=== PATIENT | female | born 1985 | race Caucasian/White ===

== ENCOUNTER 2018-02-12 08:43 | Inpatient (IN) ==
--- NOTE | 2018-02-12 09:24 | Emergency Department Note ---
Disposition Clinical Impression: NSTEMI (non-ST elevated myocardial infarction) Chest pain Qualifiers: Chest pain type: chest pain due to myocardial ischemia Ischemic chest pain ty pe: unspecified angina pectoris type Qualified Code(s): I25.9 - Chronic ischemic heart disease, unspecified Disposition: Admitted As Inpatient Condition: Fair Time of Disposition: 10:28 Chest Pain HPI - General Chief Complaint: ED Chest Pain Stated Complaint: CP Time Seen by Provider: 02/12/18 08:59 Source: patient, family Limitations: no limitations Vital Signs Reviewed: Yes Nursing Notes Reviewed: Yes - History of Present Illness HPI Narrative: 32-year-old female presents from home for evaluation of left-sided chest pain. Onset 12 hours prior to arrival. Located on the left upper parasternal. Described as sharp, stabbing. She describes a pulling sensation that comes down her neck, down her left axilla as well as from her spine as well as a heavy sensation as if somebody is sitting on her chest with associated shortness of breath. Also associated with nausea. This initially started when she twisted her left but is not worsened with any particular movements. Not improved with ibuprofen. PMH: History of anxiety. Patient notes that her symptoms do not feel at all like her previous panic attacks. Patient is a heavy coffee and mountain dew drinker. Minimal to no water intake. No history of hypertension, hyperlipidemia, CAD, ACS, diabetes. Habits: Currently everyday smoker Family history: Father had an GA at the age of 31 ROS: Positive: As above Negative: Fever, chills, vomiting, palpitations, numbness or tingling, confusion, neck pain, trauma, abdominal pain Severity scale (1-10): 7 - Related Data Home Medications Medication Instructions Recorded Confirmed Citalopram [CeleXA] 20 mg PO DAILY 02/12/18 02/12/18 Etonogestrel/Ethinyl Estradiol 1 each VG QMONTH 02/12/18 02/12/18 [Nuvaring Vaginal Ring] Allergies Allergy/AdvReac Type Severity Reaction Status Date / Time acetaminophen [From Percocet] Allergy Gastrointestinal Verified 12/24/17 10:11 Upset Oxycodone [From Percocet] Allergy Gastrointestinal Verified 12/24/17 10:11 Upset All systems ED: reviewed and negative except as stated. Review of Systems: As Per HPI Chest Pain PMH - Past Medical History Medical history: Reports: non-contributory Psychiatric history: Reports: anxiety, depression - Social History Smoking Status: Current every day smoker Alcohol use: Reports: none Drug use: Reports: none Physical Exam Vital Signs Reviewed General: Patient is alert, oriented, and in no acute distress. Head: atraumatic, normocephalic Eye: normal appearance, PERRL, EOMI, no scleral icterus, no conjunctival injection ENT: mucous membranes moist, normal external ear exam Neck: normal inspection, trachea midline, full ROM Chest: normal inspection, symmetric chest rise. Tenderness to palpation of left rib to costal sternal margin. Respiratory: Good respiratory effort. Bilateral breath sounds are clear without wheezing, crackles, or rhonchi. Cardiovascular: Regular rate and rhythm. No clicks, rubs, gallops, or murmors. Normal heart sounds. Bilateral radial pulses 2/4 and equal. Abdomen: Bowel sounds present normoactive. Abdomen is soft, nondistended, and nontender. No guarding or rebound. Musculoskeletal: Spontaneously moving all extremities. Skin: warm, dry, intact. Neuro: GCS 15. Alert and oriented x4. Sensation light touch intact. Psych: Patient's affect is appropriate for situation. - General Limitations: no limitations General appearance: alert, in no apparent distress Course Course Narrative: Patient is hypertensive to systolic 170's. No prior hx of HTN. Patient's family history is concerning. Will perform chest pain workup. Though she is not tachycardic or tachypneic, she does report shortness of breath and is hypertensive. We will continue to monitor blood pressure and also draw d-dimer. Patient's blood pressure now systolic 150s. Chest x-ray is unremarkable per radiology and my own read. Troponin elevated to 4.6. Patient given aspirin, heparinized, trial of SL nitroglycerin. 10:[address] Heredia. Discussed with him the patient's clinical presentation, comorbidities, family history, diagnosis, and treatment. He agrees to see the patient on consult. No further recommendations given at this time. 10:20 Spoke with the patient and at bedside. Discussed the above as well as or concerning diagnosis. She agrees to admission for continued evaluation. We discussed in detail her current lifestyle the need for lifestyle modifications to maximize her health moving forward notably in light of today's diagnosis as well as her family history. She expresses understanding. She requests to see a production supervisor trainee in any other needed consultants while inpatient; she appears ready and willing to make changes to her health. 10:25 Dr. Contreras, the admitting hospitalist, who agrees to accept the patient for continued evaluation with cardiology consulting. 10:28 Discussed the patient with the cardiology BRIDGET. She is no questions this time. She reaffirms admission to hospitalist with cardiology consultation. EKG #1 EKG dated 02/12/18 at 08:52 interpreted as sinus rhythm with a rate of 72. DE 165, QRS 103, QTC 414. Normal axis. Nonspecific ST-T changes. S with present in lead 1, Q wave with T-wave inversion present in lead 3. Good R-wave progression. No previous EKG for comparison. EKG #2 EKG dated 02/04/2018 at 10:14 interpreted as sinus rhythm with rate of 87 DE 146, QRS 98, QTc 468. Nonspecific ST-T changes; unchanged from EKG #1 above. Chest X-Ray 02/12/18 09:16 IMPRESSION: No acute process. D/ / Darren Menon MD / Darren Menon MD Interpreting Provider: Darren Menon MD Vital Signs Temperature 98.2 F 02/12/18 08:46 Pulse Rate 72 02/12/18 08:46 Respiratory Rate 18 02/12/18 08:46 Blood Pressure 175/110 02/12/18 08:46 O2 Sat by Pulse Oximetry 98 02/12/18 08:46 Temperature 98.2 F 02/12/18 09:09 Pulse Rate 80 02/12/18 10:04 Respiratory Rate 18 02/12/18 10:04 Blood Pressure 153/114 02/12/18 10:04 O2 Sat by Pulse Oximetry 99 02/12/18 10:04 Oxygen Delivery Oxygen Delivery Room Air Chest Pain - Lab Data Result diagrams: 02/12/18 09:26 02/12/18 09:26 Lab Results 02/12/18 02/12/18 02/12/18 Range/Units 09:26 09:26 09:26 WBC 10.7 (4.3-11.1) K/mcL RBC 4.68 (3.82-4.97) M/mcL Hgb 12.9 (11.5-15.4) g/dL Hct 39.4 (35.3-44.9) % MCV 84.2 (83.0-100.0) fL MCH 27.6 L (28.0-33.3) pg MCHC 32.7 (31.6-35.5) g/dL RDW 12.6 (11.5-14.5) % Plt Count 228 (140-400) K/mcL MPV 10.5 (9.4-12.4) fL Immature Gran % 0.3 (0-4) % Seg Neutrophils % 67.2 % Lymphocytes % 24.4 % Monocytes % 5.0 % Eosinophils % 2.5 % Basophils % 0.6 % Neutrophils # 7.2 (1.6-8.9) K/mcL Lymphocytes # 2.6 (0.6-4.6) K/mcL Monocytes # 0.5 (0.0-1.3) K/mcL Eosinophils # 0.3 (0.0-0.6) K/mcL Basophils # 0.1 (0.0-0.2) K/mcL PT 10.9 (9.4-12.1) Seconds INR 1.0 APTT 33.7 (26.0-36.0) Seconds D-Dimer 409 (0-500) ng/mLFEU Heparin Anti-Xa, Unfract 0.00 L (0.30-0.70) IU/mL Sodium 138 (136-145) mEq/L Potassium 4.2 (3.5-5.1) mEq/L Chloride 109 H (98-107) mEq/L Carbon Dioxide 20 L (23-29) mEq/L BUN 14 (6-20) mg/dL Creatinine 0.77 (0.60-1.20) mg/dL Est GFR ( Amer) > 60 (> 60) Est GFR (Non-Af Amer) > 60 (> 60) BUN/Creatinine Ratio 18 (6-26) Glucose 99 (70-105) mg/dL Calculated Osmolality 287 (280-300) Calcium 8.5 L (8.6-10.3) mg/dL Troponin I 4.62 H* (< 0.04) ng/mL Heart Score - Score History: Moderately Suspicious EKG: Non Specific repolarisation Disturbance Age: Less than 45 Risk Factors: Equal/Greater than 3 risk factor or history of atherosclerotic disease Troponin: Less than normal limit HEART Score Total: 4
[2018-02-12] MEDS ORDERED: Ondansetron ODT 4 MG TAB.RAPDIS SL ONE (09:30)
[2018-02-12] MEDS ORDERED: Ibuprofen 800 MG TABLET PO ONE (09:30)
[2018-02-12 09:35] LABS: Basophils # 0.1 K/mcL (0.0-0.2); Basophils % 0.6 %; Eosinophils # 0.3 K/mcL (0.0-0.6); Eosinophils % 2.5 %; Hematocrit 39.4 % (35.3-44.9); Hemoglobin 12.9 g/dL (11.5-15.4); Immature Granulocytes % 0.3 % (0-4); Lymphocytes # 2.6 K/mcL (0.6-4.6); Lymphocytes % 24.4 %; Mean Corpuscular HGB Conc 32.7 g/dL (31.6-35.5); Mean Corpuscular Hemoglobin 27.6 pg (28.0-33.3); Mean Corpuscular Volume 84.2 fL (83.0-100.0); Mean Platelet Volume 10.5 fL (9.4-12.4); Monocytes # 0.5 K/mcL (0.0-1.3); Neutrophils # 7.2 K/mcL (1.6-8.9); Platelet Count 228 K/mcL (140-400); Red Blood Count 4.68 M/mcL (3.82-4.97); Red Cell Distribution Width 12.6 % (11.5-14.5); Segmented Neutrophils % 67.2 %
--- NOTE | 2018-02-12 09:37 | Emergency Department Note ---
Disposition Clinical Impression: NSTEMI (non-ST elevated myocardial infarction) Chest pain Qualifiers: Chest pain type: chest pain due to myocardial ischemia Ischemic chest pain ty pe: unspecified angina pectoris type Qualified Code(s): I25.9 - Chronic ischemic heart disease, unspecified Disposition: Admitted As Inpatient Condition: Fair General Adult HPI - General Chief complaint: ED Chest Pain Stated complaint: CP Time Seen by Provider: 02/12/18 08:59 Source: patient, family Limitations: no limitations - History of Present Illness Pain Scale: 7 - Related Data Home Medications Medication Instructions Recorded Confirmed Citalopram [CeleXA] 20 mg PO DAILY 02/12/18 02/12/18 Etonogestrel/Ethinyl Estradiol 1 each VG QMONTH 02/12/18 02/12/18 [Nuvaring Vaginal Ring] Allergies Allergy/AdvReac Type Severity Reaction Status Date / Time acetaminophen [From Percocet] Allergy Gastrointestinal Verified 12/24/17 10:11 Upset Oxycodone [From Percocet] Allergy Gastrointestinal Verified 12/24/17 10:11 Upset Past Medical History - Past Medical History Medical history: Reports: non-contributory Psychiatric history: Reports: anxiety, depression - Social History Smoking Status: Current every day smoker Smokeless Tobacco Status: No Alcohol use: Reports: none Drug use: Reports: none Physical Exam - General Limitations: no limitations General appearance: alert, in no apparent distress Course Vital Signs Temperature 98.2 F 02/12/18 08:46 Pulse Rate 72 02/12/18 08:46 Respiratory Rate 18 02/12/18 08:46 Blood Pressure 175/110 02/12/18 08:46 O2 Sat by Pulse Oximetry 98 02/12/18 08:46 Temperature 98 F 02/12/18 13:47 Pulse Rate 68 02/12/18 13:47 Respiratory Rate 16 02/12/18 13:47 Blood Pressure 153/100 02/12/18 13:47 O2 Sat by Pulse Oximetry 97 02/12/18 13:47 Oxygen Delivery Oxygen Delivery Room Air Medical Decision Making - Lab Data Result diagrams: 02/12/18 09:26 02/12/18 09:26 Lab Results 02/12/18 02/12/18 02/12/18 Range/Units 09:26 09:26 09:26 WBC 10.7 (4.3-11.1) K/mcL RBC 4.68 (3.82-4.97) M/mcL Hgb 12.9 (11.5-15.4) g/dL Hct 39.4 (35.3-44.9) % MCV 84.2 (83.0-100.0) fL MCH 27.6 L (28.0-33.3) pg MCHC 32.7 (31.6-35.5) g/dL RDW 12.6 (11.5-14.5) % Plt Count 228 (140-400) K/mcL MPV 10.5 (9.4-12.4) fL Immature Gran % 0.3 (0-4) % Seg Neutrophils % 67.2 % Lymphocytes % 24.4 % Monocytes % 5.0 % Eosinophils % 2.5 % Basophils % 0.6 % Neutrophils # 7.2 (1.6-8.9) K/mcL Lymphocytes # 2.6 (0.6-4.6) K/mcL Monocytes # 0.5 (0.0-1.3) K/mcL Eosinophils # 0.3 (0.0-0.6) K/mcL Basophils # 0.1 (0.0-0.2) K/mcL PT 10.9 (9.4-12.1) Seconds INR 1.0 APTT 33.7 (26.0-36.0) Seconds D-Dimer 409 (0-500) ng/mLFEU Heparin Anti-Xa, Unfract 0.00 L (0.30-0.70) IU/mL Sodium 138 (136-145) mEq/L Potassium 4.2 (3.5-5.1) mEq/L Chloride 109 H (98-107) mEq/L Carbon Dioxide 20 L (23-29) mEq/L BUN 14 (6-20) mg/dL Creatinine 0.77 (0.60-1.20) mg/dL Est GFR ( Amer) > 60 (> 60) Est GFR (Non-Af Amer) > 60 (> 60) BUN/Creatinine Ratio 18 (6-26) Glucose 99 (70-105) mg/dL Calculated Osmolality 287 (280-300) Calcium 8.5 L (8.6-10.3) mg/dL Troponin I 4.62 H* (< 0.04) ng/mL Triglycerides 215 H (< 150) mg/dL Cholesterol 168 (< 200) mg/dL LDL Cholesterol, Calc 81 (0-99) mg/dL VLDL Cholesterol, Calc 43 H (< 31) mg/dL HDL Cholesterol 44 (40-59) mg/dL Cholesterol/HDL Ratio 3.8 (0-4.9) Critical Care Time Critical Care Time: Yes Total Critical Care Time: 35 Attestation: Critical care performed: Time is exclusive of separately billable procedures. Time includes: direct patient care, patient reassessment, coordination of patient care, interpretation of data (laboratory data, radiology data, and respiratory data), review of patient's medical records, medical consultation and documentation of patient care. Procedures included in critical care time: Procedures excluded from critical care time: Attestation Statement - Attestation Attestation: I examined this patient and my medical decision-making was reviewed with the Alicia ferreira Physician. I agree with the documented findings, disposition and treatment plan as described except to the extent set forth below. Patient presents to the ED with a chief complaint of chest pain. Left-sided. Started suddenly last night after she drank a Mountain Dew. She describes it as feeling like there were nails scratching across her chest. No similar episodes. She did feel short of breath with it. On examination she is pleasant laying in bed in no acute distress. She is noted to be hypertensive with a systolic in the 170s. She states this is new for her. Heart is regular lungs are clear. Plan. Cardiac workup. Patient has elevated troponin of 4. Repeat EKG was performed. Patient has no ST elevations. She has been discussed with cardiology. We started her on a heparin drip. She is admitted to medicine. Heart Score - Score History: Moderately Suspicious EKG: Non Specific repolarisation Disturbance Age: Less than 45 Risk Factors: Equal/Greater than 3 risk factor or history of atherosclerotic disease Troponin: Less than normal limit HEART Score Total: 4
[2018-02-12 09:51] LABS: Prothrombin Time 10.9 Seconds (9.4-12.1)
[2018-02-12 09:54] LABS: Activated Partial Thrombo Time 33.7 Seconds (26.0-36.0)
[2018-02-12 09:56] LABS: BUN/Creatinine Ratio 18 (6-26); Blood Urea Nitrogen 14 mg/dL (6-20); Calcium 8.5 mg/dL (8.6-10.3); Carbon Dioxide 20 mEq/L (23-29); Chloride 109 mEq/L (98-107); Glucose 99 mg/dL (70-105); Osmolality,Calculated 287 (280-300); Potassium 4.2 mEq/L (3.5-5.1); Sodium 138 mEq/L (136-145); eGFR For Non-African Americans > 60 (> 60)
[2018-02-12 10:05] LABS: Troponin I 4.62 ng/mL (< 0.04)
[2018-02-12] MEDS ORDERED: Nitroglycerin 0.4 MG TAB.SUBL SL PRN (10:06)
[2018-02-12] MEDS ORDERED: *HR* Heparin 5,000 UNIT/ML VIAL IVP ONE (10:07)
[2018-02-12] MEDS ORDERED: *HR* Heparin 5,000 UNIT/ML VIAL IVP PRN ×2 (10:07)
[2018-02-12] MEDS ORDERED: Aspirin 325 MG TABLET PO ONE (10:08)
[2018-02-12] MEDS ORDERED: Heparin 25,000 UNIT/500 ML D5W 25,000 UNIT/500 ML BAG IVC SCH (10:15)
--- NOTE | 2018-02-12 10:49 | Internal Med History&Physical ---
Date of Encounter: 02/12/18 Time of Encounter: 10:47 Internal Medicine - H&P: HPI Chief complaint: chest pain Admitted From: Emergency Dept Plans for Post Hospital Care: Home History of present illness: Ms. Ma is a 32 year old female Patient with cardiac risk factors of obesity, smoking, hypertension, strong family history of CAD father has an [place] at age of 31 , brother at age 4444 years old has had about 7 stents. presented emergency room with chest pain describes as pressure going up to her arm and the jaw associated with shortness of breath and then nausea EKG was unremarkable but troponin came back 4.6 consistent with non-STEMI patient is now chest pain-free being seen by cardiology and the plan is to go to [facility] for acute intervention. She hemodynamically stable blood pressure high started on heparin drip and also given aspirin Past Med Surg Social Fam HX - Past Medical History Medical history: non-contributory Psychiatric history: anxiety, depression - Social History Smoking Status: Current every day smoker Smokeless Tobacco Status: No Alcohol use: none Drug use: none Internal Medicine - H&P: Meds Citalopram [CeleXA] 20 mg PO DAILY 02/12/18 [History] Etonogestrel/Ethinyl Estradiol [Nuvaring Vaginal Ring] 1 each VG QMONTH 02/12/18 [History] Allergy/AdvReac Type Severity Reaction Status Date / Time acetaminophen [From Percocet] Allergy Gastrointestinal Verified 12/24/17 10:11 Upset Oxycodone [From Percocet] Allergy Gastrointestinal Verified 12/24/17 10:11 Upset All Systems PM: A 10-system review of systems was performed and is negative for pertinent findings except as documented above in the HPI. - Constitutional Vitals: Temp Pulse Resp BP Pulse Ox 98.2 F 80 18 153/114 99 02/12/18 09:09 02/12/18 10:04 02/12/18 10:04 02/12/18 10:04 02/12/18 10:04 Exam: done - Head Head exam: Present: atraumatic, normocephalic - Eye Eye exam: Present: PERRL, conjuntiva pink, sclera anicteric Pupils: Present: PERRL - Neck Neck exam general surgery: Present: supple, trachea midline. Absent: lymphadenopathy - Respiratory Respiratory exam: Present: CTAB. Absent: accessory muscle use, rales, rhonchi, wheezes - Cardiovascular Cardiovascular exam: Present: RRR, +S1, +S2. Absent: diastolic murmur, gallop, rubs, systolic murmur - GI/Abdominal GI/Abdominal exam: Present: normal bowel sounds, soft, no peritoneal signs. Absent: distended, tenderness - Extremities Exam Extremities exam: Present: warm, radial pulses palpable and symmetrical. Absent: calf tenderness, cyanotic, pedal edema - Neurological Exam Neurological exam: Present: CN II-XII intact, oriented X3, no focal deficits. Absent: pronater drift, facial droop, speech deficit - Skin Skin exam: Present: dry, intact Internal Med - H&P Results - Labs CBC & Chem 7: 02/12/18 09:26 02/12/18 09:26 Labs: Short CBC 02/12/18 Range/Units 09:26 WBC 10.7 (4.3-11.1) K/mcL Hgb 12.9 (11.5-15.4) g/dL Hct 39.4 (35.3-44.9) % Plt Count 228 (140-400) K/mcL Neutrophils # 7.2 (1.6-8.9) K/mcL BMP 02/12/18 09:26 Sodium 138 Potassium 4.2 Chloride 109 H Carbon Dioxide 20 L BUN 14 Creatinine 0.77 Glucose 99 Calcium 8.5 L Cardiac Enzymes 02/12/18 Range/Units 09:26 Troponin I 4.62 H* (< 0.04) ng/mL - Impressions ITS Impressions Chest X-Ray 02/12/18 09:16 IMPRESSION: No acute process. D/ / Darren Menon MD / Darren Menon MD Interpreting Provider: Darren Menon MD - Assessment and plan (1) Hypertensive urgency Current Visit: Yes Status: Chronic Assessment and plan: contribution to demand ischemia (2) Obesity Current Visit: Yes Status: Chronic Assessment and plan: Chronic due to excess caloric intake Qualifiers: Obesity type: due to excess calories Obesity classification: unspecified obesity classification Serious obesity comorbidity presence: unspecified whether serious comorbidity present Qualified Code(s): E66.09 - Other obesity due to excess calories (3) Smoking Current Visit: Yes Status: Chronic (4) NSTEMI (non-ST elevated myocardial infarction) Current Visit: Yes Status: Acute Assessment and plan: Acute non-STEMI patient is on heparin drip and aspirin and going to the [facility] - Time Spent With Patient Total time spent is greater than 50% in coordination of care (as documented) at patient's floor/unit and/or counseling patient:
[2018-02-12] MEDS ORDERED: Naloxone 0.4 MG/ML INJ IVP PRN (10:56)
--- NOTE | 2018-02-12 10:57 | Cardiology Consult Note ---
Addendum entered and electronically signed by Jung Heredia MD 02/12/18 15:50: I examined this patient and my medical decision-making was reviewed with the SPOT CLEANER. I agree with the documented findings, disposition and treatment plan as described except to the extent set forth below. A/P: NSTEMI HTN urgency Smoking A/R/B of [facility] dw her including 1% chance of MS//CVA/CABG/FIORELLA/bleeding, she is aware and agreeable with proceeding. Thank you for the consult, Jung Heredia MD [facility] Original Note: Date of Encounter: 02/12/18 Time of Encounter: 10:57 Assessment and Plan (1) NSTEMI (non-ST elevated myocardial infarction) Current Visit: Yes Status: Acute Initial troponin 4.62. Intermittent chest/left shoulder/jaw discomfort since last night. Associated dyspnea, diaphoresis, nausea. Currently CP free. Strong family hx--father MS 31, brother with CAD/PCI in his 40s. Other risk factors include obesity, undiagnosed HTN, tobacco abuse. ECG SR. No ischemic changes. DDimer negative. On heparin gtt. Start ASA, Statin, BB. TTE to evaluate structure and function. Recommend [facility]. R/B/A discussed. Pt agrees to proceed. Will order test and drug tox. Continue to follow. (2) Hypertensive urgency Current Visit: Yes Status: Chronic BP 175/110 on presentation. Give IV hydralazine now. Start PO BB. (3) Smoking Current Visit: Yes Status: Chronic Smoking cessation counseling given. Discussion w patient/family: The assessment and plan as outlined above was discussed with the patient and/or family members who expressed understanding and agreement. All questions were answered. Thank you for involving us in the care of your patient. Please call with any questions. History of Present Illness Consult date: 02/12/18 Requesting physician: Santiago Contreras Consult reason: NSTEMI Chief complaint: Chest pain History of present illness: Ms. Ma is a 32 year old female PMH of obesity, smoking, anxiety, strong family history of CAD with father having MS at age of 31, brother with CAD/PCI in his 40s. She reports intermittent left shoulder pain and dizziness over the past couple months. Last night while doing dishes she developed sudden chest/jaw/left shoulder pain associated with diaphoresis, dyspnea, nausea. Troponin is 4.62. DDimer unremarkable. Currently CP free. Cardiology consulted for further recs. She reports BP last night was 170s/110s. She is 13 months . No prior cardiac testing. Past Med Surg Social Fam HX - Past Medical History Medical history: non-contributory Psychiatric history: anxiety, depression - Social History Smoking Status: Current every day smoker Smokeless Tobacco Status: No Alcohol use: none Drug use: none Medications and Allergies Citalopram [CeleXA] 20 mg PO DAILY 02/12/18 [History] Etonogestrel/Ethinyl Estradiol [Nuvaring Vaginal Ring] 1 each VG QMONTH 02/12/18 [History] Allergy/AdvReac Type Severity Reaction Status Date / Time acetaminophen [From Percocet] Allergy Gastrointestinal Verified 12/24/17 10:11 Upset Oxycodone [From Percocet] Allergy Gastrointestinal Verified 12/24/17 10:11 Upset All Systems Review: The remainder of the systems were reviewed and are negative - Cardiovascular Cardiovascular: as per HPI, chest pain at rest, chest pain with exertion, dyspnea at rest, dyspnea on exertion, radiating jaw, neck or arm pain, lighth eadedness - Respiratory Respiratory: dyspnea Physical Examination Vital Signs, Last 4 Hours Temp Pulse Resp BP Pulse Ox 02/12/18 10:04 80 18 153/114 99 02/12/18 09:09 98.2 F 72 18 175/110 98 02/12/18 08:46 98.2 F 72 18 175/110 98 Vital Signs Temp Pulse Resp BP Pulse Ox 02/12/18 10:04 80 18 153/114 99 02/12/18 09:09 98.2 F 72 18 175/110 98 02/12/18 08:46 98.2 F 72 18 175/110 98 Intake and Output 02/11/18 02/12/18 02/12/18 23:59 07:59 15:59 Other: Weight 104.78 kg Patient Weight 02/12/18 23:59 Weight 104.78 kg General: Conversant, No Apparent Distress HEENT: Atraumatic, Normocephaly, Mucus Membranes Moist Neck: No JVD, Normal carotid pulses Cardiac: Reg Rate and Rhythm, Normal S1 and S2, No Murmur Lungs: Normal Breath Sounds, No Wheeze, Rales, Rhonchi Neuro: Alert and responsive, No focal deficits noted Abdomen: Soft, Non-Tender Skin: No rashes noted on visualized skin Musculoskeletal: No Chest Wall Tenderness Extremities: No Clubbing, No Cyanosis, No Edema, Normal Pulses Results 02/12/18 09:26 02/12/18 09:26 Lab Results 02/12/18 02/12/18 02/12/18 09:26 09:26 09:26 WBC 10.7 Hgb 12.9 Hct 39.4 Plt Count 228 INR 1.0 APTT 33.7 D-Dimer 409 Sodium 138 Potassium 4.2 Chloride 109 H Carbon Dioxide 20 L BUN 14 Creatinine 0.77 Glucose 99 Calcium 8.5 L Troponin I 4.62 H* Short CBC 02/12/18 Range/Units 09:26 WBC 10.7 (4.3-11.1) K/mcL Hgb 12.9 (11.5-15.4) g/dL Hct 39.4 (35.3-44.9) % Plt Count 228 (140-400) K/mcL Neutrophils # 7.2 (1.6-8.9) K/mcL BMP 02/12/18 Range/Units 09:26 Sodium 138 (136-145) mEq/L Potassium 4.2 (3.5-5.1) mEq/L Chloride 109 H (98-107) mEq/L Carbon Dioxide 20 L (23-29) mEq/L BUN 14 (6-20) mg/dL Creatinine 0.77 (0.60-1.20) mg/dL Glucose 99 (70-105) mg/dL Calcium 8.5 L (8.6-10.3) mg/dL Cardiac Enzymes 02/12/18 Range/Units 09:26 Troponin I 4.62 H* (< 0.04) ng/mL Impressions Chest X-Ray 02/12/18 09:16 IMPRESSION: No acute process. D/ / Darren Menon MD / Darren Menon MD Interpreting Provider: Darren Menon MD Active Medications Heparin Sodium (Porcine) (Heparin) 4,000 unit IVP Q6HR PRN PRN Reason: SEE COMMENTS Stop: 08/14/18 10:08 Heparin Sodium (Porcine) (Heparin) 2,000 unit IVP Q6H PRN PRN Reason: SEE COMMENTS Stop: 08/14/18 10:08 Heparin Sodium/Dextrose (Heparin 25,000 Unit/500 Ml D5w) 25,000 unit in 500 mls @ 20 mls/hr IVC .Q24H EUNICE; Protocol Stop: 08/14/18 10:16 Nitroglycerin (Nitroglycerin) 0.4 mg SL Q5MIN PRN PRN Reason: Chest Pain Stop: 08/14/18 10:07 - EKG Interpretation EKG results cardiology: personally reviewed (SR) Consult Discharge Plan - Plan Referrals: Javier Meade DO [Primary Care Provider] -
[2018-02-12] MEDS ORDERED: *HR* Heparin 10,000 UNIT/10 ML VIAL ONE (11:01)
[2018-02-12] MEDS ORDERED: Heparin 1,000 UNITS/500 mL 500 ML ONE (11:01)
[2018-02-12] MEDS ORDERED: 0.9 % Sodium Chloride 1,000 ML ONE ×2 (11:01→12:27)
[2018-02-12] MEDS ORDERED: ISOVUE-370 200 ML INFUS..BTL ONE (11:02)
[2018-02-12] MEDS ORDERED: Nitroglycerin 1,000 MCG/10 ML VIAL IV ONE (11:02)
[2018-02-12 12:12] LABS: Amphetamine Screen,Urine Negative ng/mL (Cutoff=1000); Barbiturate Screen,Urine Negative ng/mL (Cutoff=200); Benzodiazepines Screen,Urine Negative ng/mL (Cutoff=200); Cannabinoid Screen,Urine Negative ng/mL (Cutoff = 50); Cocaine Screen,Urine Negative ng/mL (Cutoff= 300); Opiate Screen,Urine Negative ng/mL (Cutoff=300); Phencyclidine Screen,Urine Negative ng/mL (Cutoff=25)
[2018-02-12 12:18] LABS: Chol/HDL Ratio 3.8 (0-4.9); Cholesterol 168 mg/dL (< 200); HDL Cholesterol 44 mg/dL (40-59); LDL Cholesterol,Calculated 81 mg/dL (0-99); Triglycerides 215 mg/dL (< 150)
[2018-02-12] MEDS ORDERED: *HR* FentaNYL (PF) 100 MCG/2 ML VIAL ONE (12:48)
[2018-02-12] MEDS ORDERED: *HR* Midazolam HCl 2 MG/2 ML VIAL ONE (12:48)
--- NOTE | 2018-02-12 12:55 | Pre-Sedation Evaluation ---
Pre-sedation evaluation - Pre-sedation checklist Date of procedure: 02/12/18 Procedure: [facility] Recent Vitals: Last Vital Signs Temp 98.2 F 02/12/18 09:09 Pulse 82 02/12/18 11:50 Resp 18 02/12/18 11:50 BP 139/97 02/12/18 11:50 Pulse Ox 99 02/12/18 11:50 H&P (including ROS) documented in medical record: Yes Previous reaction to sedatives/anesthetics: No Dietary Status: No solid food in preceding 4 hrs and no liquid in preceding 2 hrs Airway Assessment: Patient can open mouth completely, TMJ function normal, Micrognathia (under-bite, receding chin) absent, Neck with adequate range of motion Dentition: No loose teeth or bridges Possible difficult airway: No ASA Classification *see protocol: CLASS II-Mild systemic disease Plan of Care: Pt appropriate candidate for procedure/moderate/conscious sedation, Risks/benefits of procedure/sedation discussed w/ patient/family Cardiac Registry (Cardio Only) - Functional Capacity Functional Capacity: < 4 METS - Clincal Frailty Scale Clinical Frailty Scale: Vulnerable
--- NOTE | 2018-02-12 13:33 | Invasive Diagnostic Lab Proc ---
Name: Torri Ma Date of Study: 02/12/2018 Date: 1985 Ht: 65.0in Medical Record#: [id number] Age: 32 Wt: 231.49lb Gender: Female BSA: 2.1 Order #: [id number] BMI: 38.57 Physicians Procedure Physician: Giulia Deleon MD, [facility] Referring MD: Referring MD: Staff Name Position Time In Sarah Burt RT Monitor 12:37 PM Lamine Patterson RN Vision Impaired Teacher 12:37 PM [facility], Sneha RT (R) Scrub 12:37 PM Indications Indication Non-Stemi Procedures Performed Procedure L HRT ARTERY/VENTRICLE ANGIO Pre-Procedure Checklist Informed consent is complete signed and on chart. H&P is on chart. ID band is on and ID verified with patient. Patient NPO for procedure The procedure was described for the patient and questions were answered. Blood Pressure: 165/101 ECG is on chart. Rhythm: NSR Plan of Care Patient will tolerate the procedure without complications. Adequate level of comfort will be maintained. Hemodynamics will remain stable Patient will recover from procedure without complications. Respiratory function will be maintained. Cardiac rhythm will remain stable. Patient temperature will be maintained. Patient and/or family have verbalized understanding of the procedure. Patient Education Chief Complaint/Reason for Test: Cardiac Cath Developmental Category: Adult (18-64 years) Developmentally Appropriate for Age: Yes Learning Barriers: None Education Needs: Procedure Education Method: Verbal Information Taught: Cardiac Cath Educational Evaluation: Able to repeat information Intravenous Access Time IV Size Location DC'd Fluid/Drip Rate Units RN 0.9NaCl ml/hr Allergies Oxycodone acetaminophen Vital Signs Time BP (mmHg) HR (bpm) O2 Sat. RR (bpm) LOC 12:38 PM / % 5 = Fully awake and oriented or at pre-proc level 12:45 PM / % 5 = Fully awake and oriented or at pre-proc level 12:45 PM / % 4 = Oriented but drowsy 01:02 PM / % 4 = Oriented but drowsy 12:53 PM 165 / 101 90 100 % 22 12:59 PM 156 / 96 80 99 % 11 01:03 PM 163 / 108 84 99 % 17 01:08 PM 163 / 114 103 96 % 17 01:13 PM 163 / 97 91 96 % 23 12:49 PM 165 / 105 82 100 % 14 Procedural Medications Time Medication Dose Units Method Given By 12:49 PM Oxygen 2 L/min nasal cannula Lexi Becerra RN 12:49 PM Versed 2 mg Intravenous Lexi Becerra RN 12:49 PM Fentanyl 50 mcg Intravenous Lexi Becerra RN 12:59 PM Benadryl 50 mg Intravenous Lamine Patterson RN 01:03 PM Lidocaine 2% 19 ml Subcutaneous Giulia Deleon MD, [facility] ASA Classification: CLASS II- Mild systemic disease (i.e. well-controlled diabetes, hypertension, asthma, cigarette smoking) Rashida Score Preprocedure Postprocedure Activity 2- Moves 4 extremities sustained head lift Activity 2- Moves 4 extremities sustained head lift Circulation 2- SBP +/= 20 points of pre-anesthetic level Circulation 2- SBP +/= 20 points of pre-anesthetic level Consciousness 2- Awake and alert oriented x 3 Consciousness 2- Awake and alert oriented x 3 O2 Saturation 2- Able to maintain O2 satruation of 92% on room air O2 Saturation 2- Able to maintain O2 satruation of 92% on room air Respiratory 2- Able to deep breathe and cough well Respiratory 2- Able to deep breathe and cough well Total Score 10 Total Score 10 Contrast Agent: Isovue Diagnostic Contrast: 51 ml Total Contrast: 51 ml Fluoro Dose: 2577 mGy Procedure Log Time Note Enter By 12:37 PM Pt arrived to label rewinder 2 at 12:37 [email or web address] 12:37 PM Sarah Burt Position: Monitor Time in: 12:37 [email or web address] 12:37 PM Lamine Patterson RN Position: Vision Impaired Teacher Time in: 12:37 [email or web address] 12:37 PM Sneha Ruiz RT (R) Position: Scrub Time in: 12:37 [email or web address] 12:37 PM Patient charges- Angio tray pack, Navilyst 3mm J, Pulse Oximetry and ACIST tubing and transducer [facility] 12:37 PM IV Supplies used: J loop Angio Cath. [facility] 12:37 PM Case Delayed No [facility] 12:38 PM Hair removed from procedure site in holding area using clippers. Bilateral groin prepped with Chloraprep by Sarah Burt, then patient was draped. Skin intact. [email or web address] 12:38 PM Physician arrived 12:38 [email or web address] 12:38 PM ASA Class CLASS II- Mild systemic disease (i.e. well-controlled diabetes, hypertension, asthma, cigarette smoking) [email or web address] 12:38 PM Meet and codyet completed [email or web address] 12:38 PM Sign in performed according to hospital policy. Informed consent was obtained. [email or web address] 12:38 PM Procedure start 12:38 [email or web address] 12:38 PM Time: 12:38 Patient comfortable and pain free: Yes [email or web address] 12:38 PM Time: 12:38LOC: 5 = Fully awake and oriented or at pre-proc level [email or web address] 12:38 PM Clinical Presentation: Non-STEMI [email or web address] 12:45 PM Time: 12:45 Patient comfortable and pain free: Yes [email or web address] 12:45 PM Time: 12:45LOC: 5 = Fully awake and oriented or at pre-proc level [email or web address] 12:47 PM CathStat 12:47 PM Vitals capture started with the following parameters, Patient=Adult, Interval=5 min, Initial Sgsyydqc=499 mmHg, Deflation Rate=5 mmHg, Cuff placed on Right Arm 12:48 PM Recorded ECG: HR=85 Condition=Condition 1 12:49 PM HR=82 bpm, XSSF=268/105 mmhg, MwJ8=037.0 %, Resp=14 B/min 12:49 PM Time: 12:49 Oxygen on at 2 L/min per nasal cannula by Lexi Becerra RN 12:49 PM Time: 12:49 Versed 2 mg Intravenous Given by Lexi Becerra RN 12:49 PM Time: 12:49 Fentanyl 50 mcg Intravenous Given by Lexi Becerra RN 12:53 PM HR=90 bpm, UHMV=286/101 mmhg, UzQ4=257.0 %, Resp=22 B/min 12:59 PM HR=80 bpm, LQOZ=141/96 mmhg, SpO2=99.0 %, Resp=11 B/min, EtCO2=29 mmHg 01:00 PM Time: 12:59 Benadryl 50 mg Intravenous Given by Lamine Patterson RN 01:00 PM Time: 12:45 Patient comfortable and pain free: Yes [email or web address] 01:00 PM Time: 12:45LOC: 4 = Oriented but drowsy [email or web address] 01:01 PM Time out was performed according to hospital policy. Conscious sedation and anesthesia was achieved (see medication log with in this report above) kk:02 PM Time: 13:02 Patient comfortable and pain free: Yes :02 PM Time: 13:02LOC: 4 = Oriented but drowsy ner :03 PM HR=84 bpm, QCBV=586/108 mmhg, SpO2=99.0 %, Resp=17 B/min 01:04 PM Time: 13:03 19 ml Lidocaine 2% to right groin Subcutaneous Given by Giulia Deleon MD, [facility] [email or web address] :04 PM Access obtained by percutaneous puncture. 5Fr 10cm Terumo [place] sheath placed in right Femoral artery. [id number] [email or web address] 01:04 PM 5Fr FL 4 catheter inserted over the wire [facility] kkallner :04 PM wire removed [email or web address] :04 PM Pressure channel 1 zero failed. :04 PM Recorded Pressure: Ao, HR=79, Condition=Condition 1 (Aorta) Ao 188/82/134 01:05 PM LCA angiography performed in multiple views. [email or web address] 01:05 PM Catheter removed [email or web address] 01:05 PM 5Fr FR 4 catheter inserted over the wire [facility] [email or web address] 01:05 PM wire removed [email or web address] 01:06 PM RCA angiography performed in multiple views. [email or web address] 01:07 PM Catheter removed [email or web address] :07 PM 5Fr Pigtail catheter inserted over the wire [facility] kkallner :07 PM wire removed [email or web address] :07 PM Catheter crossed the aortic valve and was selectively placed in the left ventricle. Pressures recorded on pullback for left heart catheterization. [email or web address] :08 PM Pressure channel 1 zeroed. :08 PM Pressure channel 1 zeroed. 01:08 PM VL=538 bpm, QQXO=718/114 mmhg, SpO2=96.0 %, Resp=17 B/min 01:08 PM Recorded Pressure: LV, HV=093, Condition=Condition 1 (Left Ventricle) LV 163/-16/14 01:09 PM Bolus angiogram of left Ventricle complete: 8 ml/sec for a total of 24 mls [email or web address] 01:09 PM Recorded Pressure: LV, Ao, CA=586, Condition=Condition 1 (Left Ventricle) LV 121/40/46, (Aorta) Ao 139/101/119 01:10 PM Catheter removed [email or web address] 01:10 PM Bolus angiogram of right Femoral complete: 4 ml/sec for a total of 7 mls [email or web address] 01:11 PM Procedure completed at 13:11 02/12/2018 [email or web address] 01:11 PM Did you address ANGELA flow and Dominance? Yes [email or web address] 01:12 PM Sign out completed: Radiation Dose 194.04 mGy, 2577.28 cGy/cm2 Fluoro Time: 0.9 Isovue 370 - 200ml contrast 51 ml given by Giulia Deleon MD, [facility]. Complications: None. The patient was discharged out of the cardiac cath lab radiology technologist in stable condition. Cardiac Rehab Consult needed: NoConfirmed administered medications: Yes [email or web address] 01:13 PM Isovue 370 - 200ml,1 Bottle(s) used. [email or web address] 01:13 PM HR=91 bpm, LNSG=897/97 mmhg, SpO2=96.0 %, Resp=23 B/min 01:13 PM Estimated Blood Loss: minimal [email or web address] 01:14 PM Post ECG NSR [email or web address] 01:14 PM Post Blood Pressure 163/97 [email or web address] 01:14 PM 13:14 Post Pulses Bilateral DP & PT 2+ [email or web address] 01:14 PM Information taught Cardiac Cath and Mynx kkallner 01:14 PM Education needs Procedure, Plan of Care, and Responsibilities of Patient in Care [email or web address] 01:14 PM Learning barriers :None [email or web address] 01:14 PM Education Methods Verbal [email or web address] 01:14 PM Education evaluation Able to repeat information [email or web address] 01:14 PM Site status No bleeding/hematoma - Rt Groin as reported by Sites, Sneha RT (R) at 13:14 [email or web address] 01:14 PM Opsite applied kkallner 01:14 PM Plavix, Effient or Brilinta given No [email or web address] 01:14 PM Delay to floor No [email or web address] 01:14 PM no family at this time [email or web address] 01:15 PM Complications: None [email or web address] 01:16 PM Coronary Dominance: right [email or web address] 01:16 PM Left Main Coronary Artery with 0% stenosis [email or web address] 01:16 PM Proximal Left Anterior Descending Coronary Artery with 0% stenosis. If graft is supplying this territory, 0 % stenosis. [email or web address] 01:16 PM Mid/Distal Left Anterior Descending Coronary Artery and diagonal branches with 0% stenosis. If graft is supplying this area, 0 % stenosis [email or web address] 01:16 PM Circumflex, Obtuse Marginal, Left Posterior Descending, and Left Posterolateral Coronary Arteries with 0 % stenosis. If graft is supplying this area, 0 % stenosis kkallner 01:16 PM Right Coronary, Right Posterior Descending Arteries with Right Posterolateral and Acute Marginal branches with 0 % stenosis. If graft is supplying this area, 0 % stenosis kkallner 01:16 PM Ramus with 0% stenosis. If graft is supplying this area, 0 % stenosis [email or web address] 01:23 PM Report given to Rosalee MURO Pt taken to [facility] Room #21. 13:23 [email or web address] Complications Complication None None Hemodynamics Pressures Site Systolic/A Wave Diastolic/V Wave Mean AO 188 82 134 LV 163 -16 14 LV 121 40 46 AO 139 101 119 Post Procedure Information Blood Pressure: 163/97 mmHg Rhythm: NSR Post procedural instructions were given Closure Device Time Device Success/Fail 02/12/2018 1:17:00 PM MynxGrip Successful Site Checks Time Location Status Staff Sheath In? Note 01:14 PM Rt Groin No bleeding/hematoma Sites, Sneha RT (R) Pulses Time Site Pre-Procedure Post-Procedure Note Bilateral DP & PT 2+ Bilateral radial 2+ 1:14:00 PM Bilateral DP & PT 2+ Updated by Sarah Burt, RT (R) on 02/12/2018 1:24:41 PM electronically signed on 02/12/2018 1:25:28 PM with status of Final
--- NOTE | 2018-02-12 14:12 | Electrocardiograph Report ---
[address] [address] Test Date: 2018-02-12 Pat Name: Torri Anil Department: EXAM5 Room: [facility] Gender: F Hotel Registration Clerk: : 1985 Requested By: Malik Tellez Order Number: [id number] Reading MD: Giulia Deleon Measurements Intervals [place] Rate: 87 P: 55 MS: 146 QRS: 93 QRSD: 98 T: 24 QT: 389 QTc: 468 Interpretive Statements Sinus rhythm Borderline right axis deviation Electronically Signed On 02-12-2018 14:11:00 EST by Giulia Deleon
[2018-02-12] MEDS: 0.9 % Sodium Chloride 1,000 ML IVC SCH (14:29)
[2018-02-12] MEDS: amLODIPine 5 MG TABLET PO SCH (18:23)
[2018-02-12] MEDS ORDERED: Ibuprofen 200 MG TABLET PO ONE (20:38)
--- NOTE | 2018-02-12 22:15 | Event Note ---
Date of Encounter: 02/12/18 Time of Encounter: 22:05 Notified by nurse of troponin 12.94 post [facility] revealing normal coronary arteries and normal left ventricle with normal contractility EF 55%. Called Dr Deleon position classification specialist for cardiology to notify of increased troponin post cath of 9.36 and now 12.94 with another troponin currently ordered for [facility] at 2315. Informed patient is chest pain free. Dr Deleon advised no additional troponins need to be drawn, will cancel current order.
[2018-02-12] MEDS ORDERED: Acetaminophen 325 MG TABLET PO ONE (22:50)
[2018-02-13] MEDS: 0.9 % Sodium Chloride 1,000 ML IVC SCH (03:57)
[2018-02-13] MEDS ORDERED: Acetaminophen 325 MG TABLET PO ONE ×2 (06:19→15:20)
--- NOTE | 2018-02-13 07:32 | Electrocardiograph Report ---
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
--- NOTE | 2018-02-13 08:36 | Cardiology Progress Note ---
Date of Encounter: 02/13/18 Time of Encounter: 08:34 Assessment and Plan (1) NSTEMI (non-ST elevated myocardial infarction) Current Visit: Yes Status: Acute Troponins 4.62, 9.36, 12.94. ECG SR. No ischemic changes. DDimer negative. S/P LHC yesterday--angiographically normal coronaries, EF 55%. Given significant troponins and that symptoms improved with heparin gtt, suspect there may have been clot that resolved with heparin gtt. Cardiac rehab ordered. DAPT (ASA and Plavix) uninterrupted x 1 month given NSTEMI. Pt verbalizes understanding. Continue BB, Statin, ACEi. TTE pending to evaluate structure and function. Right femoral access site healing well. No bleeding, hematoma or ecchymosis noted. Restrictions discussed. Cardiology signing off. Reconsult PRN. Will coordinate outpt follow-up in 1 week. (2) Hypertensive urgency Current Visit: Yes Status: Chronic BP 175/110 on presentation. Now improved. Has been started on Lopressor 25mg BID, Lisinopril 2.5mg daily and Norvasc 10mg daily. Adjust as necessary. (3) Smoking Current Visit: Yes Status: Chronic Smoking cessation counseling given. Discussion w patient/family: The assessment and plan as outlined above was discussed with the patient and/or family members who expressed understanding and agreement. All questions were answered. Thank you for involving us in the care of your patient. Please call with any questions. I will discuss all the above with Dr. Heredia and make changes as necessary. Subjective Principal diagnosis: NSTEMI Interval history: Peak troponin 12.94. C yesterday showed angiographically normal coronaries, EF 55%. No acute complaints this AM. Objective Vital Signs, Last 4 Hours Temp Pulse Resp BP Pulse Ox 02/13/18 07:24 98.2 F 70 16 143/98 95 Vital Signs Temp Pulse Resp BP Pulse Ox 02/13/18 07:24 98.2 F 70 16 143/98 95 02/13/18 03:55 98.0 F 76 16 136/86 96 02/13/18 03:43 98.4 F 72 16 136/87 97 02/13/18 00:47 98.0 F 75 16 130/87 95 02/12/18 23:07 137/97 02/12/18 20:56 98.0 F 66 16 162/101 97 02/12/18 16:36 98.4 F 64 18 150/107 96 02/12/18 16:25 66 16 150/107 98 02/12/18 14:42 80 16 158/104 97 02/12/18 14:19 73 15 152/104 96 02/12/18 13:55 76 16 147/104 97 02/12/18 13:47 98 F 68 16 153/100 97 02/12/18 11:50 82 18 139/97 99 02/12/18 10:04 80 18 153/114 99 02/12/18 09:09 98.2 F 72 18 175/110 98 02/12/18 08:46 98.2 F 72 18 175/110 98 Intake and Output 02/12/18 02/13/18 02/13/18 23:59 07:59 15:59 Intake Total 0 / 0 1300 / 1300 Output Total 200 / 200 Balance 0 / 0 1100 / 1100 Intake: IV Fluids 1000 / 1000 0.9 % Sodium Chloride 1,000 ML 1000 / 1000 @ 75 mls/hr IVC .[id number] [facility] Rx #:[id number] Oral 0 / 0 300 / 300 Output: Urine 200 / 200 Other: # Voids 1 Weight 102.8 kg Patient Weight 02/13/18 23:59 Weight 102.8 kg General: Conversant, No Apparent Distress HEENT: Atraumatic, Normocephaly, Mucus Membranes Moist Neck: No JVD, Normal carotid pulses Cardiac: Reg Rate and Rhythm, Normal S1 and S2, No Murmur Lungs: Normal Breath Sounds, No Wheeze, Rales, Rhonchi Neuro: Alert and responsive, No focal deficits noted Abdomen: Soft, Non-Tender Skin: Other (right femoral access site healing well. No bleeding, hematoma or ecchymosis noted.) Musculoskeletal: No Chest Wall Tenderness Extremities: No Clubbing, No Cyanosis, No Edema, Normal Pulses Results 02/12/18 09:26 02/12/18 09:26 Lab Results 02/12/18 02/12/18 02/12/18 09:26 09:26 09:26 WBC 10.7 Hgb 12.9 Hct 39.4 Plt Count 228 INR 1.0 APTT 33.7 D-Dimer 409 Sodium 138 Potassium 4.2 Chloride 109 H Carbon Dioxide 20 L BUN 14 Creatinine 0.77 Glucose 99 Calcium 8.5 L Magnesium Troponin I 4.62 H* B-Natriuretic Peptide 02/12/18 02/12/18 02/13/18 15:50 21:10 04:48 WBC Hgb Hct Plt Count INR APTT D-Dimer Sodium Potassium Chloride Carbon Dioxide BUN Creatinine Glucose Calcium Magnesium 1.9 Troponin I 9.36 H* 12.94 H* B-Natriuretic Peptide 02/13/18 04:48 WBC Hgb Hct Plt Count INR APTT D-Dimer Sodium Potassium Chloride Carbon Dioxide BUN Creatinine Glucose Calcium Magnesium Troponin I B-Natriuretic Peptide 163 H Short CBC 02/12/18 Range/Units 09:26 WBC 10.7 (4.3-11.1) K/mcL Hgb 12.9 (11.5-15.4) g/dL Hct 39.4 (35.3-44.9) % Plt Count 228 (140-400) K/mcL Neutrophils # 7.2 (1.6-8.9) K/mcL BMP 02/12/18 Range/Units 09:26 Sodium 138 (136-145) mEq/L Potassium 4.2 (3.5-5.1) mEq/L Chloride 109 H (98-107) mEq/L Carbon Dioxide 20 L (23-29) mEq/L BUN 14 (6-20) mg/dL Creatinine 0.77 (0.60-1.20) mg/dL Glucose 99 (70-105) mg/dL Calcium 8.5 L (8.6-10.3) mg/dL Cardiac Enzymes 02/12/18 02/12/18 02/12/18 Range/Units 21:10 15:50 09:26 Troponin I 12.94 H* 9.36 H* 4.62 H* (< 0.04) ng/mL Impressions Chest X-Ray 02/12/18 09:16 IMPRESSION: No acute process. D/ / Darren Menon MD / Darren Menon MD Interpreting Provider: Darren Menon MD Active Medications Amlodipine Besylate (Norvasc) 10 mg PO DAILY [facility]; Protocol Stop: 08/14/18 17:02 Last Admin: 02/12/18 18:23 Dose: 10 mg Aspirin (Aspirin) 81 mg PO DAILY [facility] Stop: 08/15/18 09:01 Atorvastatin Calcium (Lipitor) 40 mg PO HS [facility] Stop: 08/14/18 21:01 Last Admin: 02/12/18 20:24 Dose: 40 mg Citalopram Hydrobromide (Celexa) 20 mg PO DAILY [facility] Stop: 08/15/18 09:01 Clopidogrel Bisulfate (Plavix) 75 mg PO DAILY [facility] Stop: 08/15/18 09:01 Sodium Chloride (0.9 % Sodium Chloride) 1,000 mls @ 75 mls/hr IVC .[id number] [facility] Stop: 02/13/18 13:39 Last Admin: 02/13/18 03:57 Dose: 75 mls/hr Lisinopril (Zestril) 2.5 mg PO DAILY [facility]; Protocol Stop: 08/14/18 13:46 Last Admin: 02/12/18 14:28 Dose: 2.5 mg Metoprolol Tartrate (Lopressor) 25 mg PO BID [facility] Stop: 08/14/18 11:16 Last Admin: 02/12/18 20:38 Dose: Not Given Naloxone HCl (Narcan) 0.4 mg IVP Q2MIN PRN PRN Reason: SEE COMMENTS Stop: 08/14/18 10:57 Nitroglycerin (Nitroglycerin) 0.4 mg SL Q5MIN PRN PRN Reason: Chest Pain Stop: 08/14/18 10:07 - Imaging and Cardiology Echo: pending Cardiac cath: report reviewed - EKG Interpretation EKG results cardiology: other (12 hr tele AVG HR 71, SR. No significant pauses or arrhythmias noted.) Consult Discharge Plan - Plan Additional Instructions: RISK FACTORS: STOP SMOKING: If you smoke, STOP. Smoking or tobacco use significantly increases your risk of heart disease because nicotine causes the arteries to narrow or constrict. It also causes fats to stick to the artery. Your chances of having a heart attack are greatly increased if you continue to smoke. For more information, call the education line for smoking cessation 2-377-ESHNONB EAT A LOW FAT/CHOLESTEROL/SODIUM DIET: This diet may help reduce your chances of having a heart attack. LIFTING: Avoid lifting anything more than 10 pounds for 5-7 days Prior to straining, laughing, sneezing and/or coughing, apply manual pressure directly over insertion site. ACTIVITY: You may walk or climb stairs as tolerated You can resume sexual activity as tolerated In general, you are encouraged to engage in a minimum of 30 minutes or more of moderate intensity physical activity, such as brisk walking, daily or at least 3-4 times weekly BATHING Do not submerge the site into water (bath tub, hot tub, swimming pool) for 1 week. This can be a source for infection into the blood stream. You may shower after 24 hours SITE CARE: After 24 hours, you may remove the dressing and leave the site open to air. Keep the site clean and dry. Clean gently and pat dry. You can expect bruising and tenderness that gradually resolve within a week or two. Return to work as instructed per your physician Resume driving as instructed per physician Keep all scheduled follow up appointments Resume medications as instructed IMPORTANT: If prescribed a Platelet Aggregation Inhibitor such as, Plavix, Brilinta or Effient: Duration of therapy is minimum one year These medications are often used in combination with Aspirin in prevention of future heart attacks Never discontinue unless consult with your Animal Keeper STROKE (CVA) Risk factors for a stroke are: Age, cigarette smoking, diabetes, excessive alcohol consumption, family history, high blood pressure, overweight, physical inactivity, prior stroke, heart attack, diagnosis of carotid artery stenosis or other artery disease. Warning signs: Sudden numbness or weakness of the face, arm or leg; especially on one side of the body, sudden confusion, trouble speaking or understanding, sudden trouble seeing in one or both eyes, sudden trouble walking, dizziness, loss of balance or coordination, sudden severe headache with no cause. Call 911 or go to the Emergency Room. CONGESTIVE HEART FAILURE: If you have been diagnosed with Congestive Heart Failure (CHF) and your s ymptoms return, make an appointment with your physician Weigh yourself daily. Notify your physician if you have a weight gain of two or more pounds in one day or five or more pounds in one week. If you experience any difficulty breathing, please call 911 BLEEDING: Although the risk of bleeding is minimal, it can happen. If you have any bleeding from the site, apply firm pressure above the puncture site for 10-15 minutes. If the bleeding does not stop, continue manual pressure and call 911 Contact your physician if: You develop a fever greater than 101 degrees Fahrenheit Your site becomes reddened or has any drainage You have an increase in pain or burning at the site or if a large knot forms at the site. If you experience chest pain, shortness of breath, dizziness, or extreme tiredness, stop the activity and rest. Please notify your physicians office if you experience any of these symptoms and they are not relieved by rest please call 911! Referrals: Javier Meade DO [Primary Care Provider] -
[2018-02-13] MEDS ORDERED: Aspirin 81 MG TAB.CHEW PO SCH (09:00)
[2018-02-13] MEDS ORDERED: amLODIPine 5 MG TABLET PO SCH (09:00)
[2018-02-13] MEDS: amLODIPine 5 MG TABLET PO SCH (09:14)
[2018-02-13 11:15] VITALS: BP 123/88
--- NOTE | 2018-02-13 13:47 | OB/GYN Consult Note ---
Date of Encounter: 02/13/18 Time of Encounter: 13:43 Assessment and Plan (1) Contraception management Current Visit: Yes Status: Acute Encouraged patient to remove Nuvaring VIVIANA. Follow up with Dr Carlton in the office in regards to hormonal free options/s terilization at her discretion Condoms with every act of intercourse We will sign off at this time. POC per consult with Dr Mi Qualifiers: Contraceptive encounter type: surveillance Contraceptive type: other Qualified Code(s): Z30.49 - Encounter for surveillance of other contraceptives (2) NSTEMI (non-ST elevated myocardial infarction) Current Visit: Yes Status: Acute (3) Chest pain Current Visit: Yes Status: Acute Qualifiers: Chest pain type: chest pain due to myocardial ischemia Ischemic chest pain type: unspecified angina pectoris type Qualified Code(s): I25.9 - Chronic ischemic heart disease, unspecified (4) Obesity Current Visit: Yes Status: Chronic Qualifiers: Obesity type: due to excess calories Obesity classification: unspecified obesity classification Serious obesity comorbidity presence: unspecified whether serious comorbidity present Qualified Code(s): E66.09 - Other obesity due to excess calories (5) Smoking Current Visit: Yes Status: Chronic History of Present Illness Consult date: 02/13/18 Requesting physician: Luisa Blum Reason for consult: other Chief complaint: Non-STEMI History of present illness: Ms Ma presented to the ED yesterday with c/o chest pain and was diagnosed with a Non-STEMI. She was given heparin prior to her heart cath and was found to have a normal EF and no blockages noted. Her echo was also normal. She is currently on the NuvaRing for her contraceptive and her cardiac team believes this may be contributory to a potential blood clot that resolved prior to her heart cath. She denies any pain at this time and is ready to be discharged. 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 Past Med Surg Social Fam HX - Past Medical History Medical history: non-contributory Psychiatric history: anxiety, depression - Social History Smoking Status: Current every day smoker Packs per day: 1/2 Smokeless Tobacco Status: No Alcohol use: none Drug use: none - Family History Father Adopted: [place]: Darren Ma Age: 69 Family Member Ethnicity: Non- Living Status: Still Living Hx Family Cardiac Disorders: Yes (First [place] at 32, stroke) Hx Family Respiratory Disorders: No Hx Family Cancer: No Hx Family GI Disorders: No Hx Family Genitourinary Disorders: No Hx Family Endocrine Disorder: Yes (Diabetes uncontrolled) Hx Family Musculoskeletal Disorders: No Hx Family Neuromuscular Disorders: No Hx Family Neurologic Disorders: No Hx Family HEENT Disorders: No Hx Family Autoimmune Disorders: No Hx Family Reproductive Disorders: No Hx Family Psychosocial Disorders: Yes (naraccist) Hx Family Medical Disorders: No Mother Adopted: [place]: Natividad Bray Anil Age: 67 Family Member Ethnicity: Non- Living Status: Still Living Hx Family Cardiac Disorders: Yes ([place] 3-4 years ago) Hx Family Respiratory Disorders: No Hx Family Cancer: No Hx Family GI Disorders: No Hx Family Genitourinary Disorders: No Hx Family Endocrine Disorder: No Hx Family Musculoskeletal Disorders: Yes (fibromyalgia) Hx Family Neuromuscular Disorders: No Hx Family Neurologic Disorders: No Hx Family HEENT Disorders: No Hx Family Autoimmune Disorders: No Hx Family Reproductive Disorders: No Hx Family Psychosocial Disorders: No Hx Family Medical Disorders: No Medications and Allergies Citalopram [CeleXA] 20 mg PO DAILY 02/12/18 [History] Etonogestrel/Ethinyl Estradiol [Nuvaring Vaginal Ring] 1 each VG QMONTH 02/12/18 [History] Allergy/AdvReac Type Severity Reaction Status Date / Time Oxycodone [From Percocet] Allergy Gastrointestinal Verified 12/24/17 10:11 Upset Review of Systems All Systems: reviewed and no additional remarkable complaints except as stated Exam - Vital Signs Vital signs: Initial Vital Signs Temp Pulse Resp BP Pulse Ox 98.2 F 72 18 175/110 98 02/12/18 08:46 02/12/18 08:46 02/12/18 08:46 02/12/18 08:46 02/12/18 08:46 - Constitutional Constitutional: well developed, well nourished, no acute distress, obese - HEENT HEENT: Normocephaly Results Result Diagrams: 02/12/18 09:26 02/12/18 09:26 Abnormal lab results MCH 27.6 pg (28.0-33.3) L 02/12/18 09:26 Heparin Anti-Xa, Unfract 0.00 IU/mL (0.30-0.70) L 02/12/18 09:26 Chloride 109 mEq/L (98-107) H 02/12/18 09:26 Carbon Dioxide 20 mEq/L (23-29) L 02/12/18 09:26 Calcium 8.5 mg/dL (8.6-10.3) L 02/12/18 09:26 Troponin I 12.94 ng/mL (< 0.04) H* 02/12/18 21:10 B-Natriuretic Peptide 163 pg/mL (Less than 100) H 02/13/18 04:48 Triglycerides 215 mg/dL (< 150) H 02/12/18 09:26 VLDL Cholesterol, Calc 43 mg/dL (< 31) H 02/12/18 09:26 All other labs normal. Consult Discharge Plan - Plan Additional Instructions: RISK FACTORS: STOP SMOKING: If you smoke, STOP. Smoking or tobacco use significantly increases your risk of heart disease because nicotine causes the arteries to narrow or constrict. It also causes fats to stick to the artery. Your chances of having a heart attack are greatly increased if you continue to smoke. For more information, call the education line for smoking cessation 5-926-OHEIDCB EAT A LOW FAT/CHOLESTEROL/SODIUM DIET: This diet may help reduce your chances of having a heart attack. LIFTING: Avoid lifting anything more than 10 pounds for 5-7 days Prior to straining, laughing, sneezing and/or coughing, apply manual pressure directly over insertion site. ACTIVITY: You may walk or climb stairs as tolerated You can resume sexual activity as tolerated In general, you are encouraged to engage in a minimum of 30 minutes or more of moderate intensity physical activity, such as brisk walking, daily or at least 3-4 times weekly BATHING Do not submerge the site into water (bath tub, hot tub, swimming pool) for 1 week. This can be a source for infection into the blood stream. You may shower after 24 hours SITE CARE: After 24 hours, you may remove the dressing and leave the site open to air. Keep the site clean and dry. Clean gently and pat dry. You can expect bruising and tenderness that gradually resolve within a week or two. Return to work as instructed per your physician Resume driving as instructed per physician Keep all scheduled follow up appointments Resume medications as instructed IMPORTANT: If prescribed a Platelet Aggregation Inhibitor such as, Plavix, Brilinta or Effient: Duration of therapy is minimum one year These medications are often used in combination with Aspirin in prevention of future heart attacks Never discontinue unless consult with your Medical Billing And Coding Instructor STROKE (CVA) Risk factors for a stroke are: Age, cigarette smoking, diabetes, excessive alcohol consumption, family history, high blood pressure, overweight, physical inactivity, prior stroke, heart attack, diagnosis of carotid artery stenosis or other artery disease. Warning signs: Sudden numbness or weakness of the face, arm or leg; especially on one side of the body, sudden confusion, trouble speaking or understanding, sudden trouble seeing in one or both eyes, sudden trouble walking, dizziness, loss of balance or coordination, sudden severe headache with no cause. Call 911 or go to the Emergency Room. CONGESTIVE HEART FAILURE: If you have been diagnosed with Congestive Heart Failure (CHF) and your symptom s return, make an appointment with your physician Weigh yourself daily. Notify your physician if you have a weight gain of two or more pounds in one day or five or more pounds in one week. If you experience any difficulty breathing, please call 911 BLEEDING: Although the risk of bleeding is minimal, it can happen. If you have any bleeding from the site, apply firm pressure above the puncture site for 10-15 minutes. If the bleeding does not stop, continue manual pressure and call 911 Contact your physician if: You develop a fever greater than 101 degrees Fahrenheit Your site becomes reddened or has any drainage You have an increase in pain or burning at the site or if a large knot forms at the site. If you experience chest pain, shortness of breath, dizziness, or extreme tiredness, stop the activity and rest. Please notify your physicians office if y ou experience any of these symptoms and they are not relieved by rest please call 911! Referrals: Javier Meade DO [Primary Care Provider] -
--- NOTE | 2018-02-13 15:41 | Discharge Summary ---
- NOTES TO OUTPATIENT PROVIDER Notes to Outpatient Provider: PLEASE DETERMINE NON THROMBOGENIC CONTROL OPTIONS. Follow up with scheduled appointments. Orders not resulted at time of discharge: Pending orders 02/12/18 09:16 ECG 12 lead ECG [ECG] Stat Date of Encounter: 02/13/18 Time of Encounter: 01:30 - Discharge Diagnosis (1) NSTEMI (non-ST elevated myocardial infarction) Priority: Primary Status: Acute (2) Chest pain Priority: Secondary Status: Resolved Qualifiers: Chest pain type: chest pain due to myocardial ischemia Ischemic chest pain type: unspecified angina pectoris type Qualified Code(s): I25.9 - Chronic ischemic heart disease, unspecified (3) Contraception management Priority: Secondary Status: Chronic Qualifiers: Contraceptive encounter type: surveillance Contraceptive type: other Qualified Code(s): Z30.49 - Encounter for surveillance of other contraceptives (4) Hypertensive urgency Priority: Secondary Status: Resolved (5) Obesity Priority: Secondary Status: Chronic Qualifiers: Obesity type: due to excess calories Obesity classification: unspecified obesity classification Serious obesity comorbidity presence: unspecified whether serious comorbidity present Qualified Code(s): E66.09 - Other obesity due to excess calories (6) Smoking Priority: Secondary Status: Chronic Hospital course: Ms. Ma is a 32 year old female who presented with chest pain. Troponin elevated without STEMI EKG changes. Pt had LHC without stenotic lesions. Due to suspicion that pt had a coronary clot as responded to IV heparin therapy pt had Plant Worker consult advising stopping of contraceptive harmonal ring. Pt discharged in stable and improved condition. Pt seen and examined today. Advised Plant Worker consult which advised stopping contraceptive vaginal ring. Time spent discussing smoking cessation with patient: 3 to 10 minutes - Time Spent with Patient Total time spent providing and/or coordinating discharge services: Greater than 30 minutes - Discharge Medications Prescriptions: RX: Metoprolol [Lopressor] 25 mg PO BID #60 tablet Home Medications: RX: Citalopram [CeleXA] 20 mg PO DAILY 02/12/18 [History] RX: Aspirin 81 mg PO DAILY #30 tab.chew 02/13/18 [Rx] RX: Atorvastatin [Lipitor] 40 mg PO HS #30 tablet 02/13/18 [Rx] RX: Clopidogrel [Plavix] 75 mg PO DAILY #30 tablet 02/13/18 [Rx] RX: Lisinopril [Zestril] 2.5 mg PO DAILY #30 tablet 02/13/18 [Rx] RX: Metoprolol [Lopressor] 25 mg PO BID #60 tablet 02/13/18 [Rx] RX: Nitroglycerin 0.4 mg SL Q5MIN PRN #30 tab.subl 02/13/18 [Rx] RX: amLODIPine [Norvasc] 10 mg PO DAILY #30 tablet 02/13/18 [Rx] Allergies/Adverse Reactions: Allergy/AdvReac Type Severity Reaction Status Date / Time Oxycodone [From Percocet] Allergy Gastrointestinal Verified 12/24/17 10:11 Upset Date of admission: 02/12/18 10:56 Primary care physician: Javier Meade DO Consults: 02/12/18 10:13 Consult to Cardiology [CONS] Stat Comment: Consulting Provider: Cardiology Lexi Reason for Consult: NSTEMI Time Notified: 10:14 Call Completed: Yes 02/12/18 11:09 Consult to Physician [CONS] Routine Consulting Provider: Jung Heredia Reason for Consult: nstemi Time Notified: 11:10 Call Completed: Yes 02/13/18 08:33 Consult to Cardiac Rehabilitation-Phase1 [CONS] Routine Comment: Reason for Consult: NSTEMI Call Completed: Yes 02/13/18 13:22 Consult to ARCHITECTURAL TECHNICIAN [CONS] Routine Consulting Provider: AUTOMAT WATCHER Lexi Reason for Consult: NSTEMI. Suspect clot caused it sinc LHC did not show coronary lesions and sx resolved with heparin. Pt is on Contraceptive ring. Need advice on non thrombogeniccontraceptives. Thanks. Time Notified: 13:25 Call Completed: Yes Discharging clinician: Luisa Blum Anticipated date of discharge: 02/13/18 - Constitutional Vitals: Temp Pulse Resp BP Pulse Ox 98.4 F 69 12 123/88 96 02/13/18 11:12 02/13/18 11:12 02/13/18 11:12 02/13/18 11:12 02/13/18 11:12 General appearance: Present: pleasant, no acute distress - Head Head exam: Present: atraumatic, normocephalic - Eye Eye exam: Present: PERRL, conjuntiva pink, sclera anicteric Pupils: Present: PERRL - Neck Neck exam general surgery: Present: supple, trachea midline. Absent: lymp hadenopathy - Respiratory Respiratory exam: Present: CTAB. Absent: accessory muscle use (R Groin site with mild bruise no bleeding. Distal pulses intact.), rales, rhonchi, wheezes - Cardiovascular Cardiovascular exam: Present: RRR, +S1, +S2. Absent: diastolic murmur, gallop, rubs, systolic murmur - Patient Status Disposition: Home, Self-Care Condition: Fair Overall status at discharge: patient is progressing back to baseline (STOP CONTRACEPTIVE RING ADVISED BY AUTOMAT WATCHER) - Discharge Instructions Instructions: Myocardial Infarction (DC), Chest Pain (DC), Left Heart Catheterization (DC), Chronic Hypertension (DC) Follow Up With: Hailey Carlton MD [Partnered Physician] - (PLEASE CALL AND SCHEDULE AN APPT TO BE SEEN WITHIN A WEEK.) Javier Meade DO [Primary Care Provider] - Additional Instructions: RISK FACTORS: STOP SMOKING: If you smoke, STOP. Smoking or tobacco use significantly increases your risk of heart disease because nicotine causes the arteries to narrow or constrict. It also causes fats to stick to the artery. Your chances of having a heart attack are greatly increased if you continue to smoke. For more information, call the education line for smoking cessation 6-032-[id number] EAT A LOW FAT/CHOLESTEROL/SODIUM DIET: This diet may help reduce your chances of having a heart attack. LIFTING: Avoid lifting anything more than 10 pounds for 5-7 days Prior to straining, laughing, sneezing and/or coughing, apply manual pressure directly over insertion site. ACTIVITY: You may walk or climb stairs as tolerated You can resume sexual activity as tolerated In general, you are encouraged to engage in a minimum of 30 minutes or more of moderate intensity physical activity, such as brisk walking, daily or at least 3-4 times weekly BATHING Do not submerge the site into water (bath tub, hot tub, swimming pool) for 1 week. This can be a source for infection into the blood stream. You may shower after 24 hours SITE CARE: After 24 hours, you may remove the dressing and leave the site open to air. Keep the site clean and dry. Clean gently and pat dry. You can expect bruising and tenderness that gradually resolve within a week or two. Return to work as instructed per your physician Resume driving as instructed per physician Keep all scheduled follow up appointments Resume medications as instructed IMPORTANT: If prescribed a Platelet Aggregation Inhibitor such as, Plavix, Brilinta or Effient: Duration of therapy is minimum one year These medications are often used in combination with Aspirin in prevention of future heart attacks Never discontinue unless consult with your Tile Professional STROKE (CVA) Risk factors for a stroke are: Age, cigarette smoking, diabetes, excessive alcohol consumption, family history, high blood pressure, overweight, physical inactivity, prior stroke, heart attack, diagnosis of carotid artery stenosis or other artery disease. Warning signs: Sudden numbness or weakness of the face, arm or leg; especially on one side of the body, sudden confusion, trouble speaking or understanding, sudden trouble seeing in one or both eyes, sudden trouble walking, dizziness, loss of balance or coordination, sudden severe headache with no cause. Call 911 or go to the Emergency Room. CONGESTIVE HEART FAILURE: If you have been diagnosed with Congestive Heart Failure (CHF) and your symptoms return, make an appointment with your physician Weigh yourself daily. Notify your physician if you have a weight gain of two or more pounds in one day or five or more pounds in one week. If you experience any difficulty breathing, please call 911 BLEEDING: Although the risk of bleeding is minimal, it can happen. If you have any bleeding from the site, apply firm pressure above the puncture site for 10-15 minutes. If the bleeding does not stop, continue manual pressure and call 911 Contact your physician if: You develop a fever greater than 101 degrees Fahrenheit Your site becomes reddened or has any drainage You have an increase in pain or burning at the site or if a large knot forms at the site. If you experience chest pain, shortness of breath, dizziness, or extreme tiredness, stop the activity and rest. Please notify your physicians office if you experience any of these symptoms and they are not relieved by rest please call 911!
== END 2018-02-13 18:05 | disposition home or self-care (01) | DRG 190 ==
LOC: EMEROOARM 08:43 → 2NENU 08:43
PROVIDERS: ADMIT Internal Medicine Cardiovascular Disease; ATTEND Internal Medicine Cardiovascular Disease

== ENCOUNTER → 2019-10-23 00:15 | Observation (INO) ==
[2019-10-22 23:37] VITALS: BP 119/69
[2019-10-22 23:48] LABS: Bacteria,Urine Few per hpf (None-Few); Bilirubin,Urine Negative (Negative); Blood,Urine Negative (Negative); Clarity,Urine Clear (Clear); Color,Urine Yellow (Yellow); Glucose,Urine (UA) Normal (Normal); Ketones,Urine 20 mg/dL (Negative); Leukocyte Esterase,Urine Small (Negative); Mucus,Urine Few per lpf (None-Few); Nitrite,Urine Negative (Negative); PH,Urine 6.5 pH Units (5.0-8.0); Protein,Urine Trace mg/dL (Neg-Trace); Specific Gravity,Urine 1.029 (1.010-1.025); Squamous Epithelial Cell,Urine Few per hpf (None-Few); Urobilinogen,Urine Normal (Normal); WBC,Urine 0-3 per hpf (0-3)
== END | disposition home or self-care (01) ==
LOC: 1NENULAB
PROVIDERS: ADMIT Obstetrics & Gynecology; ATTEND Obstetrics & Gynecology

== ENCOUNTER 2019-12-31 04:56 | Inpatient (IN) ==
[2019-12-31] MEDS ORDERED: 0.9 % Sodium Chloride 1,000 ML IVC ONE ×2 (06:30→08:14)
[2019-12-31 06:59] LABS: Basophils # 0.1 K/mcL (0.0-0.2); Basophils % 0.8 %; Eosinophils # 0.3 K/mcL (0.0-0.6); Eosinophils % 3.2 %; Hematocrit 39.3 % (35.3-44.9); Immature Granulocytes % 0.6 % (0-4); Lymphocytes # 2.6 K/mcL (0.6-4.6); Lymphocytes % 30.7 %; Mean Corpuscular HGB Conc 30.5 g/dL (31.6-35.5); Mean Corpuscular Volume 88.3 fL (83.0-100.0); Mean Platelet Volume 10.9 fL (9.4-12.4); Monocytes # 0.5 K/mcL (0.0-1.3); Monocytes % 5.8 %; Neutrophils # 4.9 K/mcL (1.6-8.9); Platelet Count 255 K/mcL (140-400); Red Blood Count 4.45 M/mcL (3.82-4.97); Red Cell Distribution Width 13.2 % (11.5-14.5); Segmented Neutrophils % 58.9 %; White Blood Count 8.3 K/mcL (4.3-11.1)
[2019-12-31 07:06] LABS: INR 0.9; Prothrombin Time 10.8 Seconds (9.4-12.1)
[2019-12-31 07:09] LABS: Activated Partial Thrombo Time 30.6 Seconds (26.0-36.0)
[2019-12-31 07:10] LABS: Bacteria,Urine Few per hpf (None-Few); Bilirubin,Urine Negative (Negative); Blood,Urine Large (Negative); Clarity,Urine Turbid (Clear); Color,Urine Light-Yellow (Yellow); Glucose,Urine (UA) Normal (Normal); Ketones,Urine Negative (Negative); Leukocyte Esterase,Urine Large (Negative); Mucus,Urine Few per lpf (None-Few); Nitrite,Urine Positive (Negative); PH,Urine 6.5 pH Units (5.0-8.0); Protein,Urine Trace mg/dL (Neg-Trace); RBC,Urine 50-100 per hpf (0-3); Specific Gravity,Urine 1.023 (1.010-1.025); Squamous Epithelial Cell,Urine Few per hpf (None-Few); Urobilinogen,Urine Normal (Normal); WBC,Urine TNTC per hpf (0-3)
[2019-12-31 07:16] LABS: Alanine Aminotransferase 9 Units/L (7-52); Albumin 3.3 g/dL (3.5-5.7); Albumin/Globulin Ratio 1.3 (1.1-2.2); Alkaline Phosphatase 82 Units/L (34-104); Aspartate Amino Transferase 8 Units/L (13-39); BUN/Creatinine Ratio 28 (6-26); Bilirubin,Total 0.2 mg/dL (0.3-1.0); Blood Urea Nitrogen 24 mg/dL (6-20); Calcium 8.7 mg/dL (8.6-10.3); Carbon Dioxide 24 mEq/L (23-29); Chloride 109 mEq/L (98-107); Globulin 2.5 g/dL (2.4-3.5); Glucose 105 mg/dL (70-105); Osmolality,Calculated 296 (280-300); Potassium 4.5 mEq/L (3.5-5.1); Sodium 141 mEq/L (136-145); Total Protein 5.8 g/dL (6.4-8.9); eGFR For African Americans > 60 (> 60); eGFR For Non-African Americans > 60 (> 60)
[2019-12-31 07:20] LABS: Platelet Estimate Normal (Normal); Reactive Lymphocytes Present (Not Present)
[2019-12-31] MEDS ORDERED: Metoclopramide 10 MG/2 ML VIAL IVP ONE (08:14)
[2019-12-31 09:43] LABS: Magnesium 1.8 mg/dL (1.6-2.6)
[2019-12-31 09:44] LABS: Troponin I < 0.03 ng/mL (< 0.04)
[2019-12-31 09:49] LABS: Protein/Creatinine Ratio,Urine 0.23 mg/mg (0.00-0.20)
[2019-12-31] MEDS ORDERED: Calcium Gluconate 1,000 MG/10 ML VIAL IVP PRN (11:30)
[2019-12-31] MEDS ORDERED: Naloxone 0.4 MG/ML INJ IVP PRN (11:30)
[2019-12-31] MEDS ORDERED: 0.9 % Sodium Chloride 500 ML IVC SCH (12:15)
[2019-12-31] MEDS: Magnesium Sulf 20 gm/SW 500mL 20 GM/500 ML IV.SOLN IVC SCH ×2 (12:28→22:38)
[2019-12-31] MEDS: Acetaminophen 325 MG TABLET PO PRN (20:01)
[2020-01-01] MEDS: Acetaminophen 325 MG TABLET PO PRN ×3 (01:52→18:07)
[2020-01-01 06:01] LABS: Aspartate Amino Transferase 8 Units/L (13-39); eGFR For African Americans > 60 (> 60); eGFR For Non-African Americans > 60 (> 60)
[2020-01-01 06:09] LABS: Basophils # 0.1 K/mcL (0.0-0.2); Basophils % 0.7 %; Eosinophils # 0.2 K/mcL (0.0-0.6); Eosinophils % 2.1 %; Hematocrit 35.9 % (35.3-44.9); Hemoglobin 11.8 g/dL (11.5-15.4); Immature Granulocytes % 0.5 % (0-4); Lymphocytes # 2.5 K/mcL (0.6-4.6); Lymphocytes % 29.1 %; Mean Corpuscular HGB Conc 32.9 g/dL (31.6-35.5); Mean Corpuscular Hemoglobin 27.9 pg (28.0-33.3); Mean Corpuscular Volume 84.9 fL (83.0-100.0); Mean Platelet Volume 10.7 fL (9.4-12.4); Monocytes # 0.5 K/mcL (0.0-1.3); Monocytes % 5.5 %; Neutrophils # 5.3 K/mcL (1.6-8.9); Platelet Count 237 K/mcL (140-400); Red Blood Count 4.23 M/mcL (3.82-4.97); Red Cell Distribution Width 13.2 % (11.5-14.5); Segmented Neutrophils % 62.1 %; White Blood Count 8.6 K/mcL (4.3-11.1)
[2020-01-01] MEDS: Magnesium Sulf 20 gm/SW 500mL 20 GM/500 ML IV.SOLN IVC SCH (07:29)
[2020-01-02] MEDS: Acetaminophen 325 MG TABLET PO PRN ×2 (00:35→08:32)
[2020-01-02] MEDS ORDERED: CefTRIAXone 1,000 MG VIAL IM ONE (05:51)
[2020-01-02] MEDS ORDERED: Lidocaine 1% 20 ML MDV ONE (06:54)
[2020-01-02 11:40] VITALS: BP 139/88
== END 2020-01-02 14:25 | disposition home or self-care (01) | DRG 561 ==
LOC: EMEROOARM 04:56 → 1NENUOBS 04:56
PROVIDERS: ADMIT Obstetrics & Gynecology; ATTEND Obstetrics & Gynecology